=== PATIENT | female | born 1985 | race Caucasian/White ===

== ENCOUNTER 2022-12-01 08:59 | Outpatient (CLI) | payer BC, SELFPAY | END 2022-12-01 09:00 | disposition home or self-care (01) | PROVIDERS: PCP Internal Medicine; Visit Provider Obstetrics & Gynecology | DX: Z01.419 Encounter for gynecological examination (general) (routine) without abnormal findings (principal); R10.2 Pelvic and perineal pain; Z13.6 Encounter for screening for cardiovascular disorders | CPT/HCPCS: 80061; 84146; 87086 ==

== ENCOUNTER 2022-12-08 15:55 | Outpatient (CLI) | payer BC, SELFPAY ==
--- NOTE | 2022-12-08 16:00 | CRLHL7_ITS ---
For Patients: As a result of the Century Cures Act, medical imaging exams and procedure reports are released immediately into your electronic medical record. You may view this report before your referring provider. If you have questions, please contact your health care provider. CLINICAL HISTORY: PELVIC PAIN Comparison 11/26/2020 TECHNIQUE: 2D gonzalez scale ultrasound. In addition color Doppler and spectral Doppler analysis was performed of the pelvis using a transabdominal and transvaginal approach. FINDINGS: The myometrium has a normal uniform echotexture. The uterus measures 8.4 x 3.9 x 5.7 cm. The endometrial lining appears normal and measures 6 mm in thickness. Endometrial thickness 6 millimeters. The right ovary measures 3.2 x 1.5 x 1.9 cm in size and the left ovary measures 2.6 x 1.5 x 1.3 cm. The ovaries demonstrate normal arterial and venous blood flow on color Doppler and spectral Doppler analysis. Hypoechoic right ovarian cyst measuring 1.2 x 1.0 x 1.1 cm. There are no suspicious fluid collections within the cul-de-sac. IMPRESSION: No evidence of ovarian torsion or excess pelvic free fluid. Collapsing hemorrhagic right ovarian cyst measuring 1.2 cm. IUD in good position within the endometrial canal. Dictated by Vlad Castillo MD @ 12/11/2022 8:42:53 AM (Electronically Signed)
== END 2022-12-08 15:56 | disposition home or self-care (01) ==
LOC: US 15:56
PROVIDERS: PCP Internal Medicine; Visit Provider Obstetrics & Gynecology
DX: R10.2 Pelvic and perineal pain (principal); N83.201 Unspecified ovarian cyst, right side
CPT/HCPCS: 76830; 76856; 93976

== ENCOUNTER 2023-01-27 22:11 | Emergency (ER) | payer BC, SELFPAY ==
[2023-01-27 22:12] VITALS: RESP 16; O2SAT 99
[2023-01-27 22:20] VITALS: BP 128/85; PULSE 60; RESP 18; TEMP 36.8; O2SAT 99; BMI 29.8
--- NOTE | 2023-01-27 22:24 | ED_ITS ---
HPI - General Adult General Chief complaint: Unspecified Complaint, Adult Stated complaint: possible withdrawal Time Seen by Provider: 01/27/23 22:20 History of Present Illness HPI narrative: Patient is a 37-year-old woman who suffers from complex regional pain disorder and has chronic pain on baclofen 20 mg t.i.d. through pain clinic. She did not receive her refilled baclofen on time and now his worried that she is going to go through withdrawal from the baclofen which she states she has done the past. Her pain is related to previous repair of Arnold Chiarri Malformation. Patient has no acute issues but is concerned that if she does not have continuation of her baclofen she will become ill. Related Data Home Medications Medication Instructions Recorded Confirmed acetaminophen 500 mg tablet 500 mg PO Q4-6H PRN 10/10/22 01/27/23 baclofen 10 mg tablet 20 mg PO TID 10/10/22 01/27/23 gabapentin 300 mg capsule 300 mg PO 3XD 10/10/22 01/27/23 ibuprofen 600 mg tablet 600 mg PO Q6-8H PRN 10/10/22 01/27/23 methocarbamol 750 mg tablet 750 mg PO Q6H PRN 10/10/22 01/27/23 tramadol 50 mg tablet 50 mg PO QDAY PRN 11/29/22 01/27/23 Previous Rx's Medication Instructions Recorded norethindrone acetate 1 mg-ethinyl 1 tab PO QDAY #63 tabs 12/22/22 estradiol 20 mcg tablet (Loestrin) fluoxetine 20 mg tablet 40 mg (2 x 20 mg) PO QDAY #180 tabs 01/05/23 baclofen 10 mg tablet 20 mg (2 x 10 mg) PO TID Chronic 01/27/23 pain #60 tabs Allergies Allergy/AdvReac Type Severity Reaction Status Date / Time lactose Allergy Intermediate GI Upset Verified 01/27/23 22:24 Review of Systems Status of ROS: Reports: 10 or more systems reviewed and unremarkable except as noted in History and below [facility] Medical History Bronchitis ?J40 - Bronchitis, not specified as acute or chronic (ICD-10) Bilateral otitis media ?H66.93 - Otitis media, unspecified, bilateral (ICD-10) Sinusitis ?J32.9 - Chronic sinusitis, unspecified (ICD-10) Surgical History Arnold-Chiari malformation, type I ?G93.5 - Compression of brain (ICD-10) History of dilation and curettage ?Z98.890 - Other specified postprocedural states (ICD-10) Family History Other Skin cancer Thyroid disease Social History Smoking Status: Former smoker Little interest or pleasure in doing things: several days Feeling down, depressed, or hopeless: more than half the days Exam Narrative: Exam Narrative: EXAM GENERAL: Patient appears comfortable and well. EYES: No scleral icterus. LYMPH: No supraclavicular or cervical lymphadenopathy. SKIN: Visible skin seen during exam normal or with benign process only. EXT: No dependent lower extremity pedal edema. HEART: Regular rate and rhythm with no murmurs, rubs, or gallops. LUNGS: Clear to auscultation bilaterally with no crackles or wheezes. ABD: Soft, non tender, non distended. PSYCH: Good eye contact, speech is not pressured. Const: Vital Signs, click to edit/add: Vital Signs - 24 hr 01/27/23 22:20 Temperature 98.2 F Pulse Rate [Right Pulse Oximeter] 60 Respiratory Rate 18 Blood Pressure [Ri ght Upper Arm] 128/85 Pulse Oximetry 99 Oxygen Delivery Me thod Room Air Course Course ED Course: Patient seen examined. Vital Signs Vital signs: Initial Vital Signs Temperature 98.2 F 01/27/23 22:20 Temperature Source Temporal Artery Scan 01/27/23 22:20 Pulse Rate 60 01/27/23 22:20 Respiratory Rate 18 01/27/23 22:20 Blood Pressure 128/85 01/27/23 22:20 Blood Pressure Mean 99 01/27/23 22:20 Blood Pressure Position Sitting 01/27/23 22:20 Pulse Oximetry 99 01/27/23 22:20 Oxygen Delivery Method Room Air 01/27/23 22:20 Vital Signs Temperature 98.2 F 01/27/23 22:20 Pulse Rate 60 09/09/23 22:20 Respiratory Rate 18 01/27/23 22:20 Blood Pressure 128/85 01/27/23 22:20 Pulse Oximetry 99 01/27/23 22:20 Oxygen Delivery Method Room Air 01/27/23 22:20 Temperature 98.2 F 01/27/23 22:20 Pulse Rate 60 01/27/23 22:20 Respiratory Rate 18 01/27/23 22:20 Blood Pressure 128/85 01/27/23 22:20 Pulse Oximetry 99 01/27/23 22:20 Oxygen Delivery Method Room Air 01/27/23 22:20 Medical Decision Making MDM Narrative Medical decision making narrative: Patient is a 37-year-old woman with no acute issues who simply run out of her pain medication we did make arrangements for her to have overnight fill the [facility] in [place]. She will be in contact with her primary provider and will follow-up on a p.r.n. basis. Differential Diagnosis Differential Diagnosis: Chronic pain Discharge Plan Discharge Clinical Impression: Complex regional pain syndrome Condition: Stable Additional Instructions: Follow-up as discussed. Activity Level: No Restrictions Discharge Diet: Regular Prescriptions: New baclofen 10 mg tablet 20 mg PO TID Qty: 60 3RF No Action gabapentin 300 mg capsule 300 mg PO 3XD methocarbamol 750 mg tablet 750 mg PO Q6H PRN acetaminophen 500 mg tablet 500 mg PO Q4-6H PRN ibuprofen 600 mg tablet 600 mg PO Q6-8H PRN baclofen 10 mg tablet 20 mg PO TID tramadol 50 mg tablet 50 mg PO QDAY PRN Rx Instructions: 25mg to 100mg daily as needed norethindrone ac-eth estradiol [Loestrin 06/09 ()] 1-20 mg-mcg tablet 1 tab PO QDAY Qty: 63 0RF Rx Instructions: Take one pill daily fluoxetine 20 mg tablet 40 mg PO QDAY Qty: 180 1RF Follow Up/Referrals: Deepika Grayson MD [Primary Care Provider] - Stand Alone Forms: [facility] Info Instructions
--- OUTSIDE RECORDS SUMMARY | 2023-01-27 22:36 | XMS_ITS | Patient Health Record ---
Author Name Unknown Organization [facility] Address [address] [place] [address] [address] [facility] [address] [place] [address] Care Team Providers Care Branch Assistant Name Role Phone [place], Emmett Primary Care Provider Kaden Carbajal Unavailable Unavailable Boo Barber Unavailable [phone] Tuan Villarreal Unavailable [phone] Jori Emanuel Unavailable [phone] Adina Alvarenga Unavailable [phone] Malia Gillette Unavailable [phone] Carole Dia Unavailable [phone] Kinsey Davidson Unavailable [phone] ALLERGIES No Known Allergies RESULTS Component Value Reference Range Notes Urine toxicology Reviewed date:11/27/2022 02:59:47 PM Interpretation:See Results Performing Lab: Notes/Report: See Results PORTIA Buprenophine OPI 300 0 AMP Ethanol MET Creatinine MDMA pH Specific Edison BAR BZO OXY See Results MTD Urine toxicology Reviewed date:11/27/2022 02:59:47 PM Interpretation:See Results Performing Lab: Notes/Report: See Results PORT[facility] Buprenophine OPI 300 0 AMP Ethanol MET Creatinine MDMA pH Specific Edison BAR BZO OXY See Results MTD REASON FOR REFERRAL Reason REHAB PT: Physical T herapy- Eval and Treat Please treat right upper extremity CRPS with mirror and desensitization therapy. Please call patient to schedule Diagnosis 1 Complex regional herminia n syndrome I of right upper limb (G90.511) Referral Organization [facility] Referring Provider First Name Jori Referring Provider Last Name Adelfo Referring Provider Speciality Physician Gymnastics Instructor Referred Provider Zahida Ewing Referred Provider Specialty Rehabilitati on General Notes Marco Robison 10/20 08:30:31 AM >[employer] [place], no PA required. Ok to schedule., Sarah Lorenz 11/13/2022 09:35:57 AM >Therapy is scheduled. Referral Priority Routine MEDICATIONS Medication SIG (Take, Route, Frequency, Duration) Notes Start Date End Date Status Methocarbamol 750 MG 1 tablet Orally every 6 hours as needed Active Gabapentin 300 MG 3 capsules Orally Three times a day for 30 days Active traMADol HCl 50 MG 0.5 - 1 tablet as needed Orally Every 6 hours (Max 2 tablets per day) for 19 days G89.29, G90.511, M47.812 Active FLUoxetine HCl 10 MG 1 capsule Orally Once a day Unknown TENS/NMES Unit Use as directed Patient is a candidate for an E-stim unit to be used for pain management regularly and independently. Medical necessity: M54.12, M47.812. Please contact patient at [phone]. 01/03/2023 Active Baclofen 10 MG 2 tablets Orally Three times a day Active SOCIAL HISTORY Tobacco Use: Social History Observation Description Date Details (start date - stop date) Never Smoker NA - NA Sex Assigned At : Social History Observation Description Sex Assigned At Unknown Tobacco Use/Smoking: Question Answer Notes Are you a nonsmoker Alcohol Screen Question Answer Notes Did you have a drink contain ing alcohol in the past year? Yes How often did you have a dri nk containing alcohol in the past year? 2 to 3 times a week (3 points) How many drinks did you have on a typical day when you were drinking in the past year? 1 or 2 drinks (0 point) How often did you have 6 or more drinks on one occasion in the past year? Never (0 point) Points 3 Interpretation Positive PROBLEMS Problem Type ICD Code Onset Dates Problem Status W/U Status Risk SNOMED Code Notes Problem Opioid dependence, uncomplicated (F11.20) Active confirmed Opioid dependence (75108357) Problem Other chronic pain (G89.29) Active confirmed Chronic pain (12056575) Problem Complex regional pain syndrome I of right upper limb (G90.511) Active confirmed Reflex sympathetic dystrophy of upper extremity (1752697) Problem Spondylosis without myelopathy or radiculopathy, cervical region (M47.812) Active confirmed Cervical spondylosis without myelopathy (464183712) Problem Cervical radiculopathy (M54.12) Active confirmed Cervical radiculopathy (62542717) VITAL SIGNS Blood pressure diastolic 90 mm Hg 11/28/2022 Height 72 in 11/28/2022 Blood pressure systolic 120 mm Hg 11/28/2022 Weight 254 lbs 11/28/2022 BMI 34.44 kg/m2 11/28/2022 PROCEDURES Procedure Date Ordered Date Performed Result Body Sit e Intervention: 11/09/2022 12/18/2022 sched 12/14,12/21,12/19 1 Intervention: 09/12/2022 09/15/2022 sched 09/26 Encounters Encounter Location Date Provider Diagnosis BV [facility] [address] [place] [address] 09/12/2022 Emm[place] Spondylosis without myelopathy or radiculopathy, cervical region M47.812 ; Cervicalgia M54.2 ; Low back pain, unspecified M54.50 and Other chronic pain G89.29 [facility] [address] [place] [address] [address] [place] [address] 09/22/2022 Taun Villarreal [facility] [address] [place] [address] [address] [place] [address] 09/22/2022 Emmett Lee [facility] [address] [facility] [address] [address] [address] 09/26/2022 Emmett Lee Cervical radiculopathy M54.12 [facility] [address] [place] [address] [address] [place] [address] 09/28/2022 Adina Alvarenga [facility] [address] [facility] [address] [place] [address] 11/09/2022 Jori Emanuel Spondylosis without myelopathy or radiculopathy, cervical region M47.812 ; Complex regional pain syndrome I of right upper limb G90.511 ; Cervicalgia M54.2 ; Low back pain, unspecified M54.50 ; Other chronic pain G89.29 ; Opioid dependence, uncomplicated F11.20 and retirement (current) use of opiate analgesic Z79.891 [facility] [address] [place] [address] 11/17/2022 Carole Dia [facility] [address] [place] [address] 11/22/2022 Emmett Lee BV [facility] [address] [place] [address] 11/24/2022 Carole Dia Complex regional pain syndrome I of right upper limb G90.511 [facility] [address] [place] [address] 11/27/2022 Kinsey Davidson [address] [facility] [address] [place] [address] 11/28/2022 Tuan Bolshaq Complex regional pain syndrome I of right upper limb G90.511 ; Cervicalgia M54.2 ; Spondylosis without myelopathy or radiculopathy, cervical region M47.812 ; Low back pain, unspecified M54.50 and Other chronic pain G89.29 [facility] [address] [place] [address] 11/29/2022 Carole Dia Complex regional pain syndrome I of right upper limb G90.511 [facility] [address] [place] [address] 12/04/2022 Malia Gillette [facility] [address] [facility] [place] [address] 12/08/2022 Carole Dia [facility] [address] [place] [address] 12/11/2022 Malia Gillette [facility] [address] [place] [address] 12/12/2022 Emmett Lee Other chronic pain G89.29 [facility] [address] [facility] [address] 12/13/2022 Emmett Lee [address] [facility] [address] [place] [address] 12/14/2022 Emmett Lee Complex regional pain syndrome I of right upper limb G90.511 [facility] [address] [place] [address] 12/14/2022 Carole Dia BV [facility] [address] [place] [address] 12/19/2022 Carole Dia Complex regional pain syndrome I of right upper limb G90.511 [facility] [address] [place] [address] 12/19/2022 Emmett Lee [address] [facility] [address] [place] [address] 12/21/2022 Boo Barber Complex regional pain syndrome I of right upper limb G90.511 [address] [facility] [address] [place] [address] 12/21/2022 Boo Barber BV [facility] [address] [place] [address] 12/22/2022 [facility] [address] [facility] [address] [place] [address] 12/25/2022 [facility] [address] [facility] [address] [place] [address] 12/29/2022 Emmett Lee BV [facility] [address] [place] [address] 01/03/2023 Carole Dia Complex regional pain syndrome I of right upper limb G90.511 [facility] [address] [place] [address] 01/03/2023 Emmett Lee BV [facility] [address] [place] [address] 01/11/2023 Emmett Lee BV [facility] [address] [place] [address] 01/24/2023 Carole Dia ASSESSMENTS Encounter Date Diagnosis Assessment Notes Treatment Notes Treatment Clinical Notes 01/03/2023 Complex regional pain syndrome I of right upper limb (ICD-10 - G90.511) 12/21/2022 Complex regional pain syndrome I of right upper limb (ICD-10 - G90.511) 12/12/2022 Other chronic pain (ICD-10 - G89.29) 12/19/2022 Complex regional pain syndrome I of right upper limb (ICD-10 - G90.511) 11/29/2022 Complex regional pain syndrome I of right upper limb (ICD-10 - G90.511) 11/28/2022 Complex regional pain syndrome I of right upper limb (ICD-10 - G90.511) 11/28/2022 Cervicalgia (ICD-10 - M54.2) 11/24/2022 Complex regional pain syndrome I of right upper limb (ICD-10 - G90.511) 11/09/2022 Complex regional pain syndrome I of right upper limb (ICD-10 - G90.511) 11/09/2022 Spondylosis without myelopathy or radiculopathy, cervical region (ICD-10 - M47.812) 09/26/2022 Cervical radiculopathy (ICD-10 - M54.12) 12/14/2022 Complex regional pain syndrome I of right upper limb (ICD-10 - G90.511) 09/12/2022 Spondylosis without myelopathy or radiculopathy, cervical region (ICD-10 - M47.812) 09/12/2022 Cervicalgia (ICD-10 - M54.2) 09/12/2022 Low back pain, unspecified (ICD-10 - M54.50) 11/09/2022 Cervicalgia (ICD-10 - M54.2) 11/28/2022 Spondylosis without myelopathy or radiculopathy, cervical region (ICD-10 - M47.812) 11/28/2022 Low back pain, unspecified (ICD-10 - M54.50) 11/09/2022 Low back pain, unspecified (ICD-10 - M54.50) 09/12/2022 Other chronic pain (ICD-10 - G89.29) Adina presents to the clinic for an evaluation regarding her chronic neck, right upper extremity, low back, and lower extremity pain. I have reviewed her symptoms and current medications. I checked the [facility] database and I did not find any inconsistencies. I will continue with a treatment plan consisting of conservative treatment. I reviewed her cervical and thoracic MRIs. Based upon imaging, my physical examination, and her clinical presentation, I have recommended a C5-6 SHIRLEY. I discussed this procedure with the patient, outlining the potential risks and benefits in detail and answering all questions to the patient's satisfaction. I provided educational materials for her review as well. Following this discussion, Adina expressed interest in proceeding and I have placed an order for the aforementioned procedure accordingly. I encouraged her to proceed with her scheduled UE EMG at [facility] and to follow up with her neurologist to evaluate for CRPS. We will consider a stellate ganglion block if she is diagnosed with CRPS. Regarding medications, she will continue this as prescribed through her neurologist. We will consider increasing Gabapentin or starting Cymbalta. This treatment plan was reviewed with Adina, and she was agreeable. She will return after the ordered injection for further evaluation or sooner if needed. I will continue to monitor her progress, adjusting her treatment plan as necessary. Discharge instructions reviewed verbally. Discussed the risks/benefits of prescribed medication. The patient is aware that medication may be discontinued at any time due to poor compliance with visits, and recommended treatment and/or if patient does adhere to the signed pain contract. The patient was instructed to return to the office as scheduled and call with any questions, problems or concerns. 06/06/2022 Cervical MRIImpression:1. Status post suboccipital craniotomy and C1 posterior arch resection with decompression of Chiari 1 malformation.2. Interval significant improvement/resolu tion of previously noted syringomyelia, with minimal residual dilation of the central canal at the C5-6 level.3. At C5-6, mild spinal canal with mild to moderate left neural foraminal narrowing. 04/21/2021 Impression:1. Evidence of a prominent syrinx within the upper thoracic cord 11/28/2022 Other chronic pain (ICD-10 - G89.29) Adina returns to clinic today for a follow up evaluation regarding her chronic neck and right upper extremity pain. I have reviewed the [facility] database and did not find any inconsistencies. We discussed her current symptoms and medications. I will continue with a treatment plan consisting of conservative therapy at this time. I advised Adina to proceed with her right stellate ganglion block and physical therapy sessions as scheduled. Regarding medications, I have refilled her Gabapentin for neuropathic pain relief. She hasn't noticed much relief with tramadol and notes that it makes her head feel foggy. I explained to her that all opioids have that potential and I do not recommend them for her at this time. This treatment plan was reviewed with Adina, and she was agreeable. I will continue to monitor her progress and she will follow up as needed. Plan:1. Proceed with right stellate ganglion block series of 32. Continue [facility] for mirror and desensitization therapy3. Refill Gabapentin4. Consider Butrans vs. Tramadol ER 5. Follow up as needed Discharge instructions reviewed verbally. Discussed the risks/benefits of prescribed medication. The patient is aware that medication may be discontinued at any time due to poor compliance with visits, and recommended treatment and/or if patient doesn't adhere to the signed pain contract. The patient was instructed to return to the office as scheduled and call with any questions, problems or concerns. 11/09/2022 Other chronic pain (ICD-10 - G89.29) Adina returns to clinic today for a follow up evaluation regarding her chronic neck and right upper extremity pain. I have reviewed the [facility] database and did not find any inconsistencies. We discussed her current symptoms and medications. I will continue with a treatment plan consisting of conservative therapy at this time. Due to her current symptoms, I believe she is a good candidate for a right stellate ganglion block series of 3. This procedure was explained to her and she expresses interest in proceeding. I will also refer her to [facility] for completion of mirror and desensitization therapy. Regarding medications, she is not experiencing sufficient relief from her current medications. I will start her on Tramadol 50mg 0.5-1 tab q6hrs (Max 2 per day) for improved relief. She consents to completing a pain contract and UDS today. In the future I will consider Butrans vs. Tramadol ER and rotation from Gabapentin to Lyrica. This treatment plan was reviewed with Adina, and she was agreeable. I will continue to monitor her progress and she will follow up in 3 weeks or sooner if needed. Plan:1. Order right stellate ganglion block series of 32. Referral to [facility] for mirror and desensitization therapy3. Start Tramadol 50mg 0.5-1 tab q6hrs (Max 2 per day)4. Contract and UDS today5. Consider Butrans vs. Tramadol ER6. Consider rotation from Gabapentin to Lyrica7. Follow up in 3 weeks Discharge instructions reviewed verbally. Discussed the risks/benefits of prescribed medication. The patient is aware that medication may be discontinued at any time due to poor compliance with visits, and recommended treatment and/or if patient doesn't adhere to the signed pain contract. The patient was instructed to return to the office as scheduled and call with any questions, problems or concerns. 11/09/2022 Opioid dependence, uncomplicated (ICD-10 - F11.20) 11/09/2022 retirement (current) use of opiate analgesic (ICD-10 - Z79.891) 09/12/2022 Other Shivam, Toribio middleton, am serving as a scribe to document services personally performed by Tuan Villarreal PA-C, based upon my observations and the provider's statements to me. All documentation has been reviewed by the aforementioned JONO as well as Emm[place] Lee MD, prior to being entered into the official medical record. I, [place] Lee MD attest that the above named individual is acting in scribe capacity, has observed Tuan Villarreal's performance of the services and has documented them in accordance with her direction. The documentation recorded by the scribe accurately reflects the service Tuan Villarreal PA-C and [place] Lee MD, personally performed and the decisions made by them. Thank you very much Marti Goodwin N.P. for kindly referring Adina to our practice. It is a pleasure to participate in her care. Please feel free to contact me with any questions or concerns. 11/09/2022 Other Grant Langley , am serving as a scribe to document services personally performed by Jori Emanuel PA-C, based upon my observations and the provider's statements to me. All documentation has been reviewed by the aforementioned JONO. Jori Langley PA-C, attest that the above named individual is acting in scribe capacity, has observed my performance of the services and has documented them in accordance with my direction. The documentation recorded by the scribe accurately reflects the service I personally performed and the decisions made during the clinic visit. 11/28/2022 Other Meri Langley , am serving as a scribe to document services personally performed by Tuan Villarreal PA-C, based upon my observations and the provider's statements to me. All documentation has been reviewed by the aforementioned JONO as well as Emmett Lee MD, prior to being entered into the official medical record. I, [place] Lee MD attest that the above named individual is acting in scribe capacity, has observed Tuan Villarreal's performance of the services and has documented them in accordance with her direction. The documentation recorded by the scribe accurately reflects the service Tuan Villarreal PA-C, personally performed and the decisions made by us. PLAN OF TREATMENT Next Appt Details Provider Name:Carole Sarbjit moreno, 02/01/2023 11:00:00 AM, [address], [place], [address], Provider Name:Tuan Villarreal, 02/20/2023 09:30:00 AM, [address], [address], [place], [address], Insurance Providers Payer Name Payer Address Payer Phone Subscriber Number Group Number Insured Name Patient Relationship to Insured Coverage Start Date Coverage End Date [facility] [address] [address] [place] [phone] [id number] Harsh Montoya Spouse - patient is the spouse of the insured 2 MEDICAL (GENERAL) HISTORY Medical History History ICD Code depression anxiety Surgical History Surgery Date(Month/Year) Chiari decompression 06/11 D/C 12/09
[2023-01-27 22:41] VITALS: BP 128/85; PULSE 60; RESP 18; TEMP 36.8; O2SAT 99
[2023-01-27 22:42] VITALS: BP 128/85; PULSE 60; RESP 18; TEMP 36.8
== END 2023-01-27 22:42 | disposition home or self-care (01) ==
LOC: ED 22:34
PROVIDERS: Emergency Provider Internal Medicine; PCP Internal Medicine
DX: G90.59 Complex regional pain syndrome I of other specified site (principal)
CPT/HCPCS: 99283

== ENCOUNTER 2023-05-29 09:26 | Emergency (ER) | payer BC, SELFPAY ==
[2023-05-29 09:32] VITALS: BP 116/79; PULSE 61; RESP 18; TEMP 36.7; O2SAT 100; BMI 30.1
--- NOTE | 2023-05-29 09:41 | CRLHL7_ITS ---
For Patients: As a result of the Century Cures Act, medical imaging exams and procedure reports are released immediately into your electronic medical record. You may view this report before your referring provider. If you have questions, please contact your health care provider. INDICATION: Cough. Chest tightness. TECHNIQUE : PA and lateral chest x-ray. FINDINGS: Minor fibrosis or atelectasis lingular left upper lobe. Clear right lung. Normal heart size and pulmonary vascularity. Normal included skeleton. IMPRESSION: No acute cardiopulmonary process identified. Dictated by Dru Thrasher MD @ 05/29/2023 10:07:53 AM (Electronically Signed)
--- OUTSIDE RECORDS SUMMARY | 2023-05-29 10:18 | XMS_ITS | Clinical Summary ---
Author Name Unknown Organization [employer] [facility] Address [place], [place] [address] Care Team Providers Care [employer]er Name Role Phone Judith Jarvis PA-C Primary Care Provider [phone] Allergies No known active allergies Medications Medication Sig Dispensed Refills Start Date End Date Status acetaminophen (TYLENOL EXTRA STRGTH) 500 mg tabletIndications:A cute postoperative pain Take 2 Tablets (1,000 mg) by mouth every 6 hours if needed for Pain. Max acetaminophen dose: 4000mg in 24 hrs. 0 06/07/2021 Active albuterol HFA (PRO-AIR; VENTOLIN; PROVENTIL) 90 mcg/actuation inhaler INHALE 2 PUFFS BY MOUTH EVERY 4 TO 6 HOURS NEEDED FOR SHORTNESS OF BREATH OR WHEEZING 0 05/20/2022 Active ibuprofen (ADVIL; MOTRIN) 600 mg tablet Take 600 mg by mouth every 6 hours if needed. 0 10/27/2021 Active gabapentin (NEURONTIN) 300 mg capsuleIndications: Nerve pain Take 2 Capsules (600 mg) by mouth three times daily. 180 Capsule 2 06/15/2022 Active gabapentin (NEURONTIN) 300 mg capsuleIndications: Neuropathic pain Take 3 Capsules (900 mg) by mouth three times daily. 270 Capsule 2 08/21/2022 Active methocarbamoL (ROBAXIN) 750 mg tabletIndications:M uscle tightness TAKE 1 TABLET(750 MG) BY MOUTH EVERY 6 HOURS NEEDED FOR MUSCLE SPASM 30 Tablet 0 09/12/2022 Active baclofen (LIORESAL) 10 mg tabletIndications:S pasms of the hands or feet TAKE 1 TABLET(10 MG) BY MOUTH THREE TIMES DAILY 90 Tablet 0 09/13/2022 Active Active Problems Problem Noted Date Diagnosed Date Post-operative nausea and vomiting 06/06/2021 Asymptomatic COVID-19 virus infection 06/06/2021 18 weeks gestation of 06/05/2021 Chiari I malformation 05/26/2021 Estimated Date of Delivery Comme nts Yes 11/01/2021 Immunizations Name Administration Dates Next Due Influenza, IIV4 02/07/2012 Tdap 08/19/2010 Social History Tobacco Use Types Packs/Day Years Used Date Smoking Tobacco: Former Cigarettes 0.3 2 1 06/26/2017 - 04/25/2020 Smokeless Tobacco: Never Alcohol Use Standard Drinks/Week Comments Not Currently 0 (1 standard drink = 0.6 oz pur e alcohol) Social Connections Answer Date Recorded Frequency of Communication with Friends and Fami ly Not on file 06/29/2021 Financial Resource Strain Answer Date R ecorded Difficulty of Paying Living Expenses Not on file 06/29/2021 Difficulty of Paying Living Expenses Not on file 06/29/2021 Estimated Date of Delivery Comme nts Yes 11/01/2021 Sex and Gender Information Value Date Recorded Sex Assigned at Not on file Gender Identity Not on file Sexual Orientation Not on file Obstetrics History Para Term AB IAB SAB Ectopic Multiple Livin g Live Births 1 Date Outcome GA Total Labor Labor/2nd/3rd Weight Sex Delivery Anes PTL Lilibeth A1 A5 Name Cl in Current Last Filed Vital Signs Vital Sign Reading Time Taken Comments Blood Pressure 130/79 06/06/2022 2:46 PM [employer] Pulse 75 06/06/2022 2:46 PM [employer] Temperature 36.5 ??C (97.7 ??F) 06/06/2022 2:46 PM CS T Respiratory Rate 16 08/09/2021 2:30 PM CDT Oxygen Saturation 98% 08/09/2021 2:30 PM CDT Inhaled Oxygen Concentration - - Weight 102.1 kg (225 lb) 08/11/2021 2:24 PM CDT Height 182.9 cm (6') 08/11/2021 2:24 PM CDT Body Mass Index 30.52 08/11/2021 2:24 PM CDT Plan of Treatment Health Maintenance Due Date Last Done Comments COVID-19 vaccine series (#1) 01/15/1988 Depression screening for age 12+ 1999 HIV for age 15-65 2002 Hepatitis C screening for ag e 18-79 2005 Pap test for age 21-65 2008 Tetanus booster 08/19/2020 08/19/2010 BMI (ht and wt on same day) for age 18+ 08/11/2022 08/11/2021, 06/29/2021, 04/26/2021 Influenza for age 9-49 01/19/2023 02/07/2012 Tdap Completed 08/19/2010 Pneumococcal series for age 6-64 Aged Out No longer eligible b ased on patient's age to complete this topic Advance Directives Latest Code Status on File Code Status Date Activated Date Inactivated Comments Full Code 06/05/2021 5:41 PM 06/07/2021 3:06 PM Question Answer Comments Code Status Discussion: Reviewed Preferences Code Status History Code Status Date Activated Date Inactivated Comments Full Code 05/26/2021 9:26 AM 05/29/2021 5:17 PM Question Answer Comments Code Status Discussion: Reviewed Preferences Full Code 05/25/2021 1:41 PM 05/26/2021 9:26 AM Question Answer Comments Code Status Discussion: Unable to Assess Preferences, Provider to review later Full Code 05/25/2021 7:19 AM 05/25/2021 1:41 PM Question Answer Comments Code Status Discussion: Unable to Assess Preferences, Provider to review later Care Teams [employer] Relationship Specialty Start Date End Date Judith Jarvis PA-C [id number], [place] [id number] PCP - General Physician Latin Dance Instructor 06/30/21
--- OUTSIDE RECORDS SUMMARY | 2023-05-29 10:18 | XMS_ITS | Patient Health Record ---
Author Name Unknown Organization [facility] Address [address] [place] [address] [address] [place] [address] Care Team Providers Care Chip Tester Name Role Phone Jesus Emmett Primary Care Provider Kaden Carbajal Unavailable Unavailable Boo Barber Unavailable [phone] Tuan Villarreal Unavailable [phone] Jori Emanuel Unavailable [phone] Adina Alvarenga Unavailable [phone] Malia Gillette Unavailable [phone] Carole Dia Unavailable [phone] Kinsey Davidson Unavailable [phone] ALLERGIES No Known Allergies RESULTS Component Value Reference Range Notes Urine toxicology Reviewed date:03/05/2023 11:04:29 AM Interpretation:See Results Performing Lab: Notes/Report: See Results PORTIA Buprenophine OPI 300 0 AMP Ethanol MET Creatinine MDMA pH Specific [place] BAR BZO OXY See Results MTD Urine toxicology Reviewed date:11/27/2022 02:59:47 PM Interpretation:See Results Performing Lab: Notes/Report: See Results PORTIA Buprenophine OPI 300 0 AMP Ethanol MET Creatinine MDMA pH Specific [place] BAR BZO OXY See Results MTD Urine toxicology Reviewed date:11/27/2022 02:59:47 PM Interpretation:See Results Performing Lab: Notes/Report: See Results PORTIA Buprenophine OPI 300 0 AMP Ethanol MET Creatinine MDMA pH Specific [place] BAR BZO OXY See Results MTD REASON [...] Last Name Adelfo Referring Provider Speciality Physician Log Clerk Referred Provider Zahida Ewing Referred Provider Specialty Rehabilitati on General Notes Marco Robison 10/20 08:30:31 AM >[place], no PA required. Ok to schedule., Sarah Lorenz 11/13/2022 09:35:57 AM >Therapy is scheduled. Referral Priority Routine MEDICATIONS Medication SIG (Take, Route, Frequency, Duration) Notes Start Date End Date Status traMADol HCl 50 MG 0.5 - 1 tablet as needed Orally (Ok to fill 05/19/2023) Every 6 hours (Max 2 tablets per day) for 15 days G89.29, G90.511, M47.812 05/19/2023 Active FLUoxetine HCl 20 MG 2 capsules Orally twice a day Active Gabapentin 300 MG 3 capsules Orally Three times a day for 30 days Active Methocarbamol 750 MG 1 tablet Orally nuria ry 6 hrs as needed for 30 days Active Baclofen 10 MG 2 tablets Orally Three times a day for 30 days Active SOCIAL HISTORY Tobacco Use: Social History [...] alcohol in the past year? 2 to 4 times a month (2 points) How many drinks did you have on a typical day when you were drinking in the past year? 1 or 2 drinks (0 point) How often did you have 6 or more drinks on one occasion in the past year? Never (0 point) Points 2 Interpretation Negative PROBLEMS Problem Type ICD Code Onset Dates Problem Status W/U Status Risk SNOMED Code Notes Problem Opioid dependence, uncomplicated (F11.20) Active confirmed Opioid dependence (87423248) Problem Other chronic pain (G89.29) Active confirmed Chronic pain (96866450) Problem Complex regional pain syndrome I of right upper limb (G90.511) Active confirmed Reflex sympathetic dystrophy of upper extremity (8247275) Problem Spondylosis without myelopathy or radiculopathy, cervical region (M47.812) Active confirmed Cervical spondylosis without myelopathy (159563212) Problem Cervical radiculopathy (M54.12) Active confirmed Cervical radiculopathy (71918965) VITAL SIGNS Blood pressure diastolic 70 mm Hg 05/16/2023 Height 72 in 05/16/2023 Blood pressure systolic 126 mm Hg 05/16/2023 Weight 234 lbs 05/16/2023 BMI 31.73 kg/m2 05/16/2023 PROCEDURES Procedure Date Ordered Date Performed Result Body Sit e Intervention: 09/12/2022 09/15/2022 sched 09/26 Intervention: 11/09/2022 12/18/2022 sched 12/14,12/21,12/19 1 Encounters Encounter Location Date Provider Diagnosis [facility] [address] [place] [address] [address] [place] [id number] 09/22/2022 Tuan Villarreal [facility] [address] [place] [address] [address] [place] [place] [id number] 09/22/2022 Emmett Lee [facility] [address] [place] [address] [address] [place] [place] [id number] 09/28/2022 Adina Alvarenga [facility] [address] [place] [address] [address] [place] [place] [id number] 11/22/2022 Emmett Lee [facility] [address] [place] [address] [address] [place] [place] [id number] 12/12/2022 Emmett Lee Other chronic pain G89.29 [facility] [address] [place] [address] [address] [place] [id number] 12/13/2022 Emmett Lee [facility] [address] [place] [address] [address] [place] [place] [id number] 12/19/2022 Emmett BROTHERS [facility] [address] [place] [id number] 01/03/2023 Emmett BROTHERS [facility] [address] [place] [id number] 01/11/2023 Emmett Lee [facility] [address] [place] [address] [address] [place] [id number] 01/29/2023 Emmett [place] [address] [facility] [address] [place] [id number] 09/12/2022 Emmett Lee Spondylosis without myelopathy or radiculopathy, cervical region M47.812 ; Cervicalgia M54.2 ; Low back pain, unspecified M54.50 and Other chronic pain G89.29 [address] [facility] [address] [place] [address] 11/09/2022 Jori Emanuel Spondylosis without myelopathy or radiculopathy, cervical region M47.812 ; Complex regional pain syndrome I of right upper limb G90.511 ; Cervicalgia M54.2 ; Low back pain, unspecified M54.50 ; Other chronic pain G89.29 ; Opioid dependence, uncomplicated F11.20 and rn long term care (current) use of opiate analgesic Z79.891 [address] [facility] [address] [place] [address] 11/28/2022 Tuan Bolick Complex regional pain syndrome I of right upper limb G90.511 ; Cervicalgia M54.2 ; Spondylosis without myelopathy or radiculopathy, cervical region M47.812 ; Low back pain, unspecified M54.50 and Other chronic pain G89.29 [address] [facility] [address] [place] [address] 02/20/2023 Tuan Bolick Other chronic pain G89.29 ; Cervical radiculopathy M54.12 and Cannabis use, unspecified, uncomplicated F12.90 [address] [facility] [address] [place] [address] 03/20/2023 Tuan Bolick Other chronic pain G89.29 ; Cervical radiculopathy M54.12 and Cannabis use, unspecified, uncomplicated F12.90 [address] [facility] [address] [place] [address] 04/18/2023 Tuan Bolick Cannabis use, unspecified, uncomplicated F12.90 ; Other chronic pain G89.29 and Cervical radiculopathy M54.12 [address] [facility] [address] [place] [address] 05/16/2023 Tuan Villarreal Cannabis use, unspecified, uncomplicated F12.90 ; Other chronic pain G89.29 and Cervical radiculopathy M54.12 [address] [facility] [address] [place] [address] 09/26/2022 Emmett Lee Cervical radiculopathy M54.12 [address] [facility] [address] [place] [address] 12/14/2022 Emmett Lee Complex regional pain syndrome I of right upper limb G90.511 [address] [facility] [address] [place] [address] 12/21/2022 [facility] [address] [place] [address] [address] [place] [address] 12/29/2022 Emmett Lee [address] [facility] [address] [place] [address] 12/21/2022 Boo Espitiaf Complex regional pain syndrome I of right upper limb G90.511 [facility] [address] [place] [address] [address] [place] [address] 12/25/2022 Emmett Lee BV [facility] [address] [place] [address] 11/17/2022 Carole Dia BV [facility] [address] [place] [address] 11/24/2022 Carole Dia Complex regional pain syndrome I of right upper limb G90.511 BV [facility] [address] [place] [address] 11/27/2022 Kinsey Davidson BV [facility] [address] [place] [address] 11/29/2022 Carole Dia Complex regional pain syndrome I of right upper limb G90.511 BV [facility] [address] [place] [address] 12/04/2022 Malia Gillette BV [facility] [address] [place] [address] 12/08/2022 Carole Dia [facility] [address] [place] [address] 12/11/2022 Malia Gillette [facility] [address] [facility] [address] 12/14/2022 Carole Dia [facility] [address] [place] [address] 12/19/2022 Carole Dia Complex regional pain syndrome I of right upper limb G90.511 [facility] [address] [place] [address] 12/22/2022 Carole Dia [facility] [address] [facility] [place] [address] 01/03/2023 Carole Dia Complex regional pain syndrome I of right upper limb G90.511 [facility] [address] [place] [address] 01/24/2023 Carole Dia [facility] [address] [facility] [address] 02/01/2023 Carole Dia [facility] [address] [place] [address] 01/31/2023 Carole Dia Complex regional pain syndrome I of right upper limb G90.511 ASSESSMENTS Encounter Date Diagnosis Assessment Notes Treatment Notes Treatment Clinical Notes 11/09/2022 Complex regional pain syndrome I of right upper limb (ICD-10 - G90.511) 11/09/2022 Spondylosis without myelopathy or radiculopathy, cervical region (ICD-10 - M47.812) 12/12/2022 Other chronic pain (ICD-10 - G89.29) 12/14/2022 Complex regional pain syndrome I of right upper limb (ICD-10 - G90.511) 01/31/2023 Complex regional pain syndrome I of right upper limb (ICD-10 - G90.511) 02/20/2023 Other chronic pain (ICD-10 - G89.29) Adina returns to clinic today for a follow up evaluation regarding her chronic neck right upper extremity. I have reviewed the [facility] database and did not find any inconsistencies. We discussed her current symptoms and medications. I will continue with a treatment plan consisting of medication management at this time. I will consider an SCS trial for her cervical radicular symptoms pending these imaging results. Considering her current symptoms, I recommended medical cannabis in which she showed interest and understanding in, therefore, I plan [facility] cert[facility] She consented to a UDS today for baseline accordingly. Regarding medications, I refilled her Baclofen, Methocarbamol, and Tramadol as they continue to provide her with adequate pain relief. This treatment plan was reviewed with Adina, and she was agreeable. I will continue to monitor her progress, and she will follow up in one month or sooner if needed. Plan:1. CHARLIE to [place] for imaging 2. Consider SCS for cervical pen3. [facility] certification today 4. UDS today 5. Refill Baclofen 6. Refill Methocarbamol 7. Refill Tramadol 8. Follow up in 1 month Discharge instructions reviewed verbally. Discussed the risks/benefits of prescribed medication. The patient is aware that medication may be discontinued at any time due to poor compliance with visits, and recommended treatment and/or if patient doesn't adhere to the signed pain contract. The patient was instructed to return to the office as scheduled and call with any questions, problems or concerns. 02/20/2023 Cervical radiculopathy (ICD-10 - M54.12) 03/20/2023 Other chronic pain (ICD-10 - G89.29) Adina returns to clinic today for a follow-up evaluation regarding her chronic neck right upper extremity. I have reviewed the [facility] database and did not find any inconsistencies. We discussed her current symptoms and medications. I will continue with a treatment plan consisting of medication management at this time. I discussed a cervical SCS trial with Adina today, and answered her questions about the procedure and what to expect from this process. She states that she does not want to proceed with this intervention at this time, but is willing to consider this again in the future. Regarding medications, I refilled her Tramadol and instructed her to continue taking Baclofen and Methocarbamol as they continue to provide her with adequate pain relief. I also recommended she proceeds with trialing medical cannabis products to see if these will help her control her pain without an SCS. This treatment plan was reviewed with Adina, and she was agreeable. I will continue to monitor her progress, and she will follow up in one month or sooner if needed. Plan:1. Proceed with [facility] for pain management2. Refill Tramadol3. Continue Methocarbamol and Baclofen4. Consider cervical SCS5. Follow-up in one month Discharge instructions reviewed verbally. Discussed the risks/benefits of prescribed medication. The patient is aware that medication may be discontinued at any time due to poor compliance with visits, and recommended treatment and/or if patient doesn't adhere to the signed pain contract. The patient was instructed to return to the office as scheduled and call with any questions, problems or concerns. CERVICAL MRI from 06/06/2022 Impression: 1. Status post suboccipital craniotomy and C1 posterior arch resection with decompression of Chiari 1 malformation. 2. Interval significant improvement/resolu tion of previously noted syringomyelia, with minimal residual dilation of the central canal at the C5-6 level. 3. At C5-6, mild spinal canal with mild to moderate left neural foraminal narrowing. 05/16/2023 Cannabis use, unspecified, uncomplicated (ICD-10 - F12.90) 01/03/2023 Complex regional pain syndrome I of right upper limb (ICD-10 - G90.511) 12/21/2022 Complex regional pain syndrome I of right upper limb (ICD-10 - G90.511) 12/19/2022 Complex regional pain syndrome I of right upper limb (ICD-10 - G90.511) 11/29/2022 Complex regional pain syndrome I of right upper limb (ICD-10 - G90.511) 04/18/2023 Cannabis use, unspecified, uncomplicated (ICD-10 - F12.90) 11/28/2022 Complex regional pain syndrome I of right upper limb (ICD-10 - G90.511) 11/28/2022 Cervicalgia (ICD-10 - M54.2) 11/24/2022 Complex regional pain syndrome I of right upper limb (ICD-10 - G90.511) 09/26/2022 Cervical radiculopathy (ICD-10 - M54.12) 09/12/2022 Spondylosis without myelopathy or radiculopathy, cervical region (ICD-10 - M47.812) 09/12/2022 Cervicalgia (ICD-10 - M54.2) 09/12/2022 Low back pain, unspecified (ICD-10 - M54.50) 11/28/2022 Spondylosis without myelopathy or radiculopathy, cervical region (ICD-10 - M47.812) 04/18/2023 Other chronic pain (ICD-10 - G89.29) Adina returns to clinic today for a follow up evaluation regarding her chronic pain. I have reviewed the [facility] database and did not find any inconsistencies. We discussed her current symptoms and medications. I will continue with a treatment plan consisting of medication management at this time. Regarding medications, I will refill her Tramadol and Gabapentin as they continue to provide moderate relief. Regarding recent bluriness in the right eye, I recommended she first consult with an eye doctor. This treatment plan was reviewed with Adina, and she was agreeable. I will continue to monitor her progress and she will follow up in one month or sooner if needed. Plan:1. Refill Tramadol2. Refill Gabapentin3. Advised to consult eye doctor regarding right eye blurriness4. Follow up in 1 month Discharge instructions reviewed verbally. Discussed the risks/benefits of prescribed medication. The patient is aware that medication may be discontinued at any time due to poor compliance with visits, and recommended treatment and/or if patient doesn't adhere to the signed pain contract. The patient was instructed to return to the office as scheduled and call with any questions, problems or concerns. 04/18/2023 Cervical radiculopathy (ICD-10 - M54.12) 05/16/2023 Other chronic pain (ICD-10 - G89.29) Adina returns to clinic today for a follow up evaluation regarding her chronic pain. I have reviewed the [facility] database and did not find any inconsistencies. We discussed her current symptoms and medications. I will continue with a treatment plan consisting of medication management at this time. Adina has not followed up with her eye doctor regarding her right eye blurriness due to the holidays, but plans to as she is able. Regarding medications, I will refill her Tramadol as they continue to provide moderate relief. This treatment plan was reviewed with Adina, and she was agreeable. I will continue to monitor her progress, and she will follow up in one month or sooner if needed. Plan: 1. Advised to consult eye doctor regarding right eye blurriness 2. Refill Tramadol 3. Follow up in 1 month Discharge instructions reviewed verbally. Discussed the risks/benefits of prescribed medication. The patient is aware that medication may be discontinued at any time due to poor compliance with visits, and recommended treatment and/or if patient doesn't adhere to the signed pain contract. The patient was instructed to return to the office as scheduled and call with any questions, problems or concerns. 03/20/2023 Cervical radiculopathy (ICD-10 - M54.12) 11/09/2022 Cervicalgia (ICD-10 - M54.2) 02/20/2023 Cannabis use, unspecified, uncomplicated (ICD-10 - F12.90) 11/09/2022 Low back pain, unspecified (ICD-10 - M54.50) 03/20/2023 Cannabis use, unspecified, uncomplicated (ICD-10 - F12.90) 05/16/2023 Cervical radiculopathy (ICD-10 - M54.12) 09/12/2022 Other chronic pain (ICD-10 - G89.29) Adina presents to the clinic for an evaluation regarding her chronic neck, right upper extremity, low back, and lower extremity pain. I have reviewed her symptoms and current medications. I checked the [facility] database and I did not find any [...] proceed with her scheduled UE EMG at [facility] and to follow up with her [...] syrinx within the upper thoracic cord 11/28/2022 Low back pain, unspecified (ICD-10 - M54.50) 11/28/2022 Other chronic pain (ICD-10 - G89.29) Adina returns to clinic today for a follow up evaluation regarding her chronic neck and right upper extremity pain. I have reviewed the [place] [employer] database and did not find any inconsistencies. [...] upper extremity pain. I have reviewed the [facility] database and did not find any inconsistencies. [...] proceeding. I will also refer her to [facility] for completion of mirror and desensitization [...] ganglion block series of 32. Referral to [facility] for mirror and desensitization therapy3. Start [...] Opioid dependence, uncomplicated (ICD-10 - F11.20) 11/09/2022 residential (current) use of opiate analgesic (ICD-10 - Z79.891) 05/16/2023 Other I, Adina Ion weinberg, am serving as a scribe to document services personally performed by Tuan Villarreal PA-C, based upon my observations and the provider's statements to me. All documentation has been reviewed by the aforementioned PAJuanito. I, Tuan Villarreal PA-C, attest that the above named individual is acting in scribe capacity, has observed my performance of the services and has documented them in accordance with my direction. The documentation recorded by the scribe accurately reflects the service I personally performed and the decisions made during the clinic visit. 09/12/2022 Other I, Toribio middleton, am serving as a scribe [...] with any questions or concerns. 11/09/2022 Other I, Grant Sterling , am serving as a scribe to document services personally performed by Jori Emanuel PA-C, based upon my observations and the provider's statements to me. All documentation has been reviewed by the aforementioned PAJuanito. IJori PA-C, attest that the above named individual is acting in scribe capacity, has observed my performance of the services and has documented them in accordance with my direction. The documentation recorded by the scribe accurately reflects the service I personally performed and the decisions made during the clinic visit. 11/28/2022 Other I, Meri Padgett , am serving as a scribe to document services personally performed by Tuan Villarreal PA-C, based upon my observations and the provider's statements to me. All documentation has been reviewed by the aforementioned JONO as well as Emmett Lee MD, prior to being entered into the official medical record. Emmett Langley MD attest that the above named individual is acting in scribe capacity, has observed Tuan Villarreal's performance of the services and has documented them in accordance with her direction. The documentation recorded by the scribe accurately reflects the service Tuan Villarreal PA-C, personally performed and the decisions made by us. 03/20/2023 Other Karen Langley, am serving as a scribe to document services personally performed by Tuan Villarreal PA-C, based upon my observations and the provider's statements to me. All documentation has been reviewed by the aforementioned PAJesusC as well as Emmett Lee MD, prior to being entered into the official medical record. Emmett Langley MD attest that the above named individual is acting in scribe capacity, has observed Tuankaur Villarreal's performance of the services and has documented them in accordance with her direction. The documentation recorded by the scribe accurately reflects the service Tuan Villarreal PA-C, and Emmett Lee MD personally performed and the decisions made by them. 02/20/2023 Other Graeme Langley, am serving as a scribe to document services personally performed by Tuan Villarreal PA-C, based upon my observations and the provider's statements to me. All documentation has been reviewed by the aforementioned PAJesusC as well as Emmett Lee MD, prior to being entered into the official medical record. Emmett Langley MD attest that the above named individual is acting in scribe capacity, has observed Tuan Villarreal's performance of the services and has documented them in accordance with her direction. The documentation recorded by the scribe accurately reflects the service Tuan Villarreal PA-C, personally performed and the decisions made by her. 04/18/2023 Other Grant Langley , am serving as a scribe to document services personally performed by Tuan Villarreal PA-C, based upon my observations and the provider's statements to me. All documentation has been reviewed by the aforementioned PAJuanito. I, Tuan Villarreal PA-C, attest that the above named individual is acting in scribe capacity, has observed my performance of the services and has documented them in accordance with my direction. The documentation recorded by the scribe accurately reflects the service I personally performed and the decisions made during the clinic visit. PLAN OF TREATMENT Next Appt Details Provider Name:Tuan browning, 06/13/2023 09:45:00 AM, [address], [address], [place], [address], Insurance Providers Payer Name Payer Address Payer Phone Subscriber Number Group Number Insured Name Patient Relationship to Insured Coverage Start Date Coverage End Date [facility] [address] [address] [place] [address] [id number] Harsh Montoya Spouse - patient is the spouse of the insured 2 MEDICAL (GENERAL) HISTORY Medical History History ICD Code Depression Anxiety Chiari I malformation with resulting syr ingomyelia Surgical History Surgery Date(Month/Year) Chiari decompression 06/11 D/C 12/09
[2023-05-29 10:27] LABS: PCR FLU A Negative PCR FLU A (Negative); PCR FLU B Negative PCR FLU B (Negative); PCR RSV Negative PCR RSV (Negative); SARS PCR* Negative SARS-CoV-2 (Negative)
--- NOTE | 2023-05-29 11:37 | ED_ITS ---
HPI - General Adult General Date Seen: 05/29/23 Chief complaint: Shortness of Breath/Dyspnea Stated complaint: Heaviness in chest, short of breath, headache Time Seen by Provider: 05/29/23 09:40 Source: patient Mode of arrival: ambulatory Limitations: no limitations History of Present Illness HPI narrative: Patient is a 37-year-old woman with about a 5 day history of upper respiratory symptoms including cough, fatigue, congestion. No fevers. Her son was diagnosed with pneumonia and so she is concerned about possible pneumonia. She has a diagnosis of complex regional pain syndrome since having a repair for Chiari malformation and says that that pain has been worse since all this started. The symptoms are worse at night when she feels like her cough is somewhat rattley and it is harder to breathe. She does not have an underlying diagnosis of asthma or COPD, does not smoke. Related Data Home Medications Medication Instructions Recorded Confirmed acetaminophen 500 mg tablet 500 mg PO Q4-6H PRN 10/10/22 05/29/23 gabapentin 300 mg capsule 300 mg PO 3XD 10/10/22 05/29/23 ibuprofen 600 mg tablet 600 mg PO Q6-8H PRN 10/10/22 05/29/23 methocarbamol 750 mg tablet 750 mg PO Q6H PRN 10/10/22 05/29/23 tramadol 50 mg tablet 50 mg PO QDAY PRN 11/29/22 05/29/23 Cannabis 03/28/23 05/29/23 Previous Rx's Medication Instructions Recorded fluoxetine 20 mg tablet 40 mg (2 x 20 mg) PO QDAY #180 tabs 01/05/23 baclofen 10 mg tablet 20 mg (2 x 10 mg) PO TID Chronic 01/27/23 pain #60 tabs benzonatate 200 mg capsule 200 mg PO TID PRN cough #14 caps 05/29/23 Allergies Allergy/AdvReac Type Severity Reaction Status Date / Time lactose Allergy Intermediate GI Upset Verified 05/29/23 09:38 Review of Systems Status of ROS: Reports: 10 or more systems reviewed and unremarkable except as noted in History and below [facility] Medical History Bronchitis ?J40 - Bronchitis, not specified as acute or chronic (ICD-10) Bilateral otitis media ?H66.93 - Otitis media, unspecified, bilateral (ICD-10) Sinusitis ?J32.9 - Chronic sinusitis, unspecified (ICD-10) Surgical History Arnold-Chiari malformation, type I ?G93.5 - Compression of brain (ICD-10) History of dilation and curettage ?Z98.890 - Other specified postprocedural states (ICD-10) Family History Other Skin cancer Thyroid disease Social History Smoking Status: Former smoker Second hand tobacco smoke exposure: No How often do you have a drink containing alcohol: never How often do you have six or more drinks on one occasion: Never AUDIT-C Alcohol total score: 0 Non-prescribed substance use: denies use Little interest or pleasure in doing things: several days Feeling down, depressed, or hopeless: more than half the days Exam Narrative: Exam Narrative: Vital signs as noted above. In general, an alert, well-appearing patient. Head: Normocephalic, atraumatic. Eyes: Pupils are equal reactive. Extraocular movements are full. Conjunctivae are normal. ENT: Mucous membranes are moist. Throat is normal. Neck: Supple without lymphadenopathy. Heart: Regular rate and rhythm. No murmur or rub. Lungs: Clear bilaterally. No increased work of breathing, crackles or wheezes. Abdomen: Soft and nontender. No organomegaly. Extremities: Well perfused. No edema. No calf tenderness. Pulses intact. Neurologic: Patient is alert and oriented to person and place. Speech is fluent. Face is symmetric. Moves all extremities equally. Affect: Normal. Skin: Warm and dry. Well perfused. Const: Vital Signs, click to edit/add: Vital Signs - 24 hr 05/29/23 09:32 Temperature 98.1 F Pulse Rate [Right Pulse Oximeter] 61 Respiratory Rate 18 Blood Pressure [Ri ght Upper Arm] 116/79 Pulse Oximetry 100 Oxygen Delivery Me thod Room Air Documenting provider has reviewed patient's vital signs: yes Course Course ED Course: Swab was obtained for COVID, influenza and RSV, discussed that symptoms certainly could be another viral infection as well. Chest x-ray by my review showed a little bit of streakiness at the left heart border, radiology reads this as likely atelectasis, no infiltrate. For now would recommend supportive care, I do not hear any evidence of bronchospasm I think she is unlikely to benefit from steroids. I did provide some Tessalon Perles to help with nighttime cough. For worsening respiratory symptoms, high fevers, etcetera, return for re-evaluation at any time. Anticipate gradual improvement over the next 7-10 days, primary care follow-up if not improving. Vital Signs Vital signs: Initial Vital Signs Respiratory Effort Normal, Spontaneous, Non-Labored 05/29/23 09:28 Respiratory Depth Normal 05/29/23 09:28 Respiratory Pattern Normal 05/29/23 09:28 Vital Signs Temperature 98.1 F 05/29/23 09:32 Pulse Rate 61 05/29/23 09:32 Respiratory Rate 18 05/29/23 09:32 Blood Pressure 116/79 05/29/23 09:32 Pulse Oximetry 100 05/29/23 09:32 Oxygen Delivery Method Room Air 05/29/23 09:32 Temperature 98.1 F 05/29/23 09:32 Pulse Rate 61 05/29/23 09:32 Respiratory Rate 18 05/29/23 09:32 Blood Pressure 116/79 05/29/23 09:32 Pulse Oximetry 100 05/29/23 09:32 Oxygen Delivery Method Room Air 05/29/23 09:32 Medical Decision Making Lab Data Labs: Lab Results 05/29/23 Range/Units 09:41 SARS-CoV-2 (PCR) Negative SARS-CoV-2 (Negative) Influenza Type A (PCR) Negative PCR FLU A (Negative) Influenza Type B (PCR) Negative PCR FLU B (Negative) RSV (PCR) Negative PCR RSV (Negative) Discharge Plan Discharge Clinical Impression: Upper respiratory infection Patient Disposition: Home, Self-Care Condition: Stable Instructions: Upper Respiratory Infection (DC) Additional Instructions: Trial of Tessalon Perles for cough. Ibuprofen or Tylenol if needed for aches and pains. For acute worsening, high fevers, significant shortness of breath, etcetera return at any time for re-evaluation. Otherwise, anticipate gradual improvement over the next 7-10 days. Primary care follow-up if not improved at that point. Prescriptions: New benzonatate 200 mg capsule 200 mg PO TID PRN (Reason: cough) Qty: 14 0RF No Action gabapentin 300 mg capsule 300 mg PO 3XD methocarbamol 750 mg tablet 750 mg PO Q6H PRN acetaminophen 500 mg tablet 500 mg PO Q4-6H PRN ibuprofen 600 mg tablet 600 mg PO Q6-8H PRN (DME) Cannabis 0 .ROUTE .MEDSUPPLY tramadol 50 mg tablet 50 mg PO QDAY PRN Rx Instructions: 25mg to 100mg daily as needed baclofen 10 mg tablet 20 mg PO TID Qty: 60 3RF fluoxetine 20 mg tablet 40 mg PO QDAY Qty: 180 1RF Follow Up/Referrals: Deepika rGayson MD [Primary Care Provider] - Stand Alone Forms: [employer] Info Instructions
== END 2023-05-29 10:36 | disposition home or self-care (01) ==
PROVIDERS: Emergency Provider Emergency Medicine; PCP Internal Medicine
DX: J06.9 Acute upper respiratory infection, unspecified (principal)
CPT/HCPCS: 71046; 87631; 99283; 99284

== ENCOUNTER 2024-12-18 13:32 | Outpatient (CLI) | payer BC, SELFPAY ==
[2024-12-20 08:46] LABS: HPV Source Cervical
[2024-12-21 20:15] LABS: HPV Genotype 16 by TMA Not Detected; HPV Genotype 18/45 by TMA Not Detected
[2024-12-23 15:36] LABS: Pap Test Digital Imaging Done
== END 2024-12-18 13:33 | disposition home or self-care (01) ==
PROVIDERS: PCP Internal Medicine; Visit Provider Obstetrics & Gynecology
DX: N90.89 Other specified noninflammatory disorders of vulva and perineum (principal); Z12.4 Encounter for screening for malignant neoplasm of cervix; Z11.51 Encounter for screening for human papillomavirus (HPV); Z13.6 Encounter for screening for cardiovascular disorders
CPT/HCPCS: 80061; 87624; 87625; 88141; 88142; 88175

== ENCOUNTER 2025-01-13 07:06 | Outpatient (CLI) | payer BC, SELFPAY ==
--- NOTE | 2025-01-13 07:15 | CRLHL7_ITS ---
For Patients: As a result of the Century Cures Act, medical imaging exams and procedure reports are released immediately into your electronic medical record. You may view this report before your referring provider. If you have questions, please contact your health care provider. Indication: Chiari malformation. Technique: MRI of the cervical spine was performed without the use of intravenous contrast. Comparison: MRI cervical spine 06/06/2022. Findings: Prior postsurgical changes of suboccipital decompression with resection of the posterior C1 arch related to Chiari malformation decompression. The vertebral body heights appear maintained without evidence of fracture. No discrete T1 hypointense marrow infiltrating process. Mild multilevel disc height loss and degeneration. Straightening of the cervical lordosis. No abnormal cord signal. C2-3: No spinal canal or neural foraminal narrowing. C3-4: No spinal canal or neural foraminal narrowing. C4-5: No spinal canal or neural foraminal narrowing. C5-6: Shallow disc bulge results in mild spinal canal narrowing. Mild to moderate left neural foraminal narrowing secondary to uncovertebral joint and facet arthropathy. Right neural foramen is patent. C6-7: Disc degeneration. No spinal canal or neural foraminal narrowing. C7-T1: No spinal canal or neural foraminal narrowing. Incidental moderate to severe sphenoid sinus mucosal disease. Impression: 1. Stable postsurgical changes related to Chiari 1 malformation decompression. 2. No evidence of residual syringomyelia. 3. At C5-6, stable mild spinal canal with mild to moderate left neural foraminal narrowing. Dictated by Rj Spivey MD @ 01/13/2025 3:16:11 PM (Electronically Signed)
== END 2025-01-13 07:07 | disposition home or self-care (01) ==
LOC: MRI 07:07
PROVIDERS: PCP Internal Medicine; Visit Provider Internal Medicine
DX: Q07.00 Arnold-Chiari syndrome without spina bifida or hydrocephalus (principal); M50.222 Other cervical disc displacement at C5-C6 level
CPT/HCPCS: 72141

== ENCOUNTER 2025-03-10 09:05 | Outpatient (CLI) | payer BC, SELFPAY ==
[2025-03-10 16:19] LABS: Bacterial Vaginosis* Negative (Negative); Candida glab/krus NOT DETECTED (No Detected)
[2025-03-10 16:50] LABS: Chlamydia DNA Amplified* NOT DETECTED (No Detected); GC DNA Amplified* NOT DETECTED (No Detected)
== END 2025-03-10 09:06 | disposition home or self-care (01) ==
PROVIDERS: PCP Internal Medicine; Visit Provider Obstetrics & Gynecology
DX: Z11.3 Encounter for screening for infections with a predominantly sexual mode of transmission (principal); M79.2 Neuralgia and neuritis, unspecified
CPT/HCPCS: 81513; 86592; 86703; 86706; 86803; 87340; 87481; 87491; 87591; 87661